=== PATIENT | male | born 1960 | race African-American/Black ===

== ENCOUNTER 2022-12-21 08:16 | Emergency (ER) | payer OTHER ==
[~2022-12-21] VITALS: Ht 165.1 cm; Wt 77.1 kg
[2022-12-21 08:47] VITALS: TEMP 98; O2SAT 100
[2022-12-21] MEDS ORDERED: KETOROLAC 30MG/ML VIAL IM STA (10:55)
[2022-12-21] MEDS ORDERED: ACETAMINOPHEN WITH CODEINE 300/30MG TABLET PO STA (10:55)
[2022-12-21 11:40] VITALS: BP 137/92; PULSE 102; RESP 20
[2022-12-21] MEDS ORDERED: HYDROCODONE/ACETAMINOPHEN 5/325MG TABLET PO STA (11:40)
[2022-12-21] MEDS ORDERED: HYDR-4001 MT (12:41)
[2022-12-21] MEDS ORDERED: NAPR-681 PO (12:41)
== END 2022-12-21 16:36 | disposition home or self-care (01) ==
LOC: ER 08:16
DX: S86.012A Strain of left Achilles tendon, initial encounter (principal); X58.XXXA Exposure to other specified factors, initial encounter; Y93.89 Activity, other specified; Y92.89 Other specified places as the place of occurrence of the external cause; Y99.8 Other external cause status
CPT/HCPCS: 99283; 73610; J1885

== ENCOUNTER 2024-06-24 19:30 | Inpatient (IN) | payer OTHER ==
[2024-06-24] VITALS (8 sets, daily range): BP systolic 143–155; BP diastolic 84–95; PULSE 100–111; RESP 15–33; TEMP 36.7–36.9; O2SAT 94–98
[~2024-06-24] VITALS: Ht 170.2 cm; Wt 79.8 kg
[~2024-06-24 19:30] MED LIST: HYDR-4001 MT; NAPR-681 PO
[2024-06-24] MEDS: LABETALOL 5MG/ML 4ML INJ IV ONE (20:07)
[2024-06-24] MEDS: LEVETIRACETAM 1000MG PREMIX 100 ML IV NR (20:14)
[2024-06-24 20:17] LABS: BASOPHILS % 1.3 % (0.0-2.0); EOSINOPHILS % 1.1 % (0.0-5.0); HEMATOCRIT. 41.8 % (42.0-52.0); LYMPHOCYTES % 34.7 % (20.0-50.0); MEAN CORPUSCULAR HEMOGLOBIN 31.5 pg (28.0-32.0); MEAN CORPUSCULAR HGB CONC 33.6 g/dL (31.0-37.0); MEAN CORPUSCULAR VOLUME 93.9 fL (80.0-94.0); MEAN PLATELET VOLUME 7.8 fl (7.4-10.4); MONOCYTES % 14.6 % (2.0-8.0); NEUTROPHILS % 48.3 % (40.0-76.0); PLATELET 229 x1000/uL (130-400); RED BLOOD CELL COUNT 4.45 mill/uL (4.7-6.1); WHITE BLOOD COUNT 5.7 x1000/uL (4.5-11.0)
[2024-06-24 20:24] LABS: PROTHROMBIN TIME 10.7 sec (9.6-11.0)
[2024-06-24 20:25] LABS: CARBON DIOXIDE 30 mEq/L (21-32); CHLORIDE 101 mEq/L (98-107); POTASSIUM 3.6 mEq/L (3.5-5.1); SODIUM 138 mEq/L (136-145)
[2024-06-24 20:27] LABS: CALCIUM 9.8 mg/dL (8.7-10.4)
[2024-06-24 20:31] LABS: GLUCOSE 179 mg/dL (70-105)
[2024-06-24 20:32] LABS: ETHANOL BLOOD < 10 mg/dL (<10); UREA NITROGEN BLOOD 13 mg/dL (9-23)
[2024-06-24] MEDS: DEXAMETHASONE 10 MG/ML VIAL IV NR (20:42)
[2024-06-24] MEDS: NICARDIPINE 40MG/200ML PREMIX 200 ML IV PRN (20:44)
[2024-06-24] MEDS: DEXT 5%/LACTATED RINGERS 1,000 ML IV SCH (20:45)
[2024-06-24] MEDS ORDERED: NICARDIPINE 100 MG in SODIUM CHLORIDE 0.9% 60 ML IV PRN (20:45)
[2024-06-24] MEDS ORDERED: LEVETIRACETAM 500MG PREMIX 100 ML IV SCH (21:00)
[2024-06-24 21:23] LABS: CLARITY URINE CLEAR (CLEAR); COLOR URINE YELLOW (YELLOW); GLUCOSE URINE NEGATIVE (NEGATIVE); KETONES URINE 1+ (NEGATIVE); LEUKOCYTE ESTERASE URINE NEGATIVE (NEGATIVE); NITRITE URINE NEGATIVE (NEGATIVE); OCCULT BLOOD URINE TRACE (NEGATIVE); PROTEIN URINE 1+ (NEGATIVE); SPECIFIC GRAVITY URINE 1.045 (1.005-1.030)
[2024-06-24 21:36] LABS: BACTERIA URINE NONE SEEN; SQUAMOUS EPITHELIAL CELL URINE RARE /lpf (RARE/1+); WBC URINE NONE SEEN /hpf (0-2)
[2024-06-24 21:39] LABS: *AMPHETAMINES SCREEN URINE NEGATIVE (NEGATIVE); *BARBITURATES SCREEN URINE NEGATIVE (NEGATIVE); *BENZODIAZEPINES SCREEN URINE NEGATIVE (NEGATIVE); *COCAINE SCREEN URINE NEGATIVE (NEGATIVE)
[2024-06-24 21:40] LABS: CANNABINOID URINE SCREEN NEGATIVE (NEGATIVE); ECSTASY MDMA SCREEN URINE NEGATIVE (NEGATIVE); METHADONE URINE SCREEN NEGATIVE (NEGATIVE); OPIATES URINE SCREEN NEGATIVE (NEGATIVE); PHENCYCLIDINE URINE SCREEN NEGATIVE (NEGATIVE)
[2024-06-24] MEDS ORDERED: MAGNESIUM/ALUMINUM HYDROXIDE/SIMETHICONE 30ML UDC PO PRN (21:45)
[2024-06-24] MEDS ORDERED: ONDANSETRON HCL 4MG/2ML INJ IV PRN (21:45)
[2024-06-24] MEDS ORDERED: CLONIDINE 0.1MG TABLET PO PRN (21:45)
[2024-06-24] MEDS ORDERED: DOCUSATE SODIUM 100MG CAPSULE PO PRN (21:45)
[2024-06-24] MEDS ORDERED: GUAIFENESIN 200MG/10ML SUGAR FREE UDC PO PRN (21:45)
[2024-06-24] MEDS ORDERED: ACETAMINOPHEN 325MG TABLET PO PRN (21:45)
[2024-06-24] MEDS ORDERED: IPRATROPIUM/ALBUTEROL 0.5-3(2.5)MG/3ML NEB HHN PRN (21:45)
[2024-06-24] MEDS ORDERED: DEXTROSE 50% WATER 50ML SYRINGE IV PRN (21:45)
[2024-06-24] MEDS: PANTOPRAZOLE SODIUM 40 MG/VIAL IV SCH (22:49)
[2024-06-24 23:38] LABS: CREATINE KINASE MB FRACTION 2.3 ng/mL (0.5-3.6)
[2024-06-24 23:39] LABS: TROPONIN I HIGH SENSITIVITY 17 ng/L (3.0-53)
[2024-06-24 23:40] LABS: CREATINE KINASE 87 IU/L (46-171)
[2024-06-25] VITALS (69 sets, daily range): BP systolic 101–157; BP diastolic 36–129; PULSE 96–142; RESP 12–31; TEMP 36.4–37; O2SAT 72–99
[2024-06-25] MEDS: DEXAMETHASONE 4MG/ML 1ML VIAL IV SCH (01:57)
[2024-06-25] MEDS: NICARDIPINE 100 MG in SODIUM CHLORIDE 0.9% 60 ML IV PRN (02:00)
[2024-06-25] MEDS: BLOOD SUGAR DIAGNOSTIC STRIP TEST SCH (05:34)
[2024-06-25 05:50] LABS: BASOPHILS % 0.8 % (0.0-2.0); EOSINOPHILS % 0.1 % (0.0-5.0); HEMATOCRIT. 47.6 % (42.0-52.0); HEMOGLOBIN. 15.7 g/dL (14.0-18.0); LYMPHOCYTES % 14.4 % (20.0-50.0); MEAN CORPUSCULAR HEMOGLOBIN 31.5 pg (28.0-32.0); MEAN CORPUSCULAR VOLUME 95.5 fL (80.0-94.0); MEAN PLATELET VOLUME 8.3 fl (7.4-10.4); MONOCYTES % 1.3 % (2.0-8.0); NEUTROPHILS % 83.4 % (40.0-76.0); PLATELET 250 x1000/uL (130-400); RED BLOOD CELL COUNT 4.98 mill/uL (4.7-6.1); WHITE BLOOD COUNT 5.9 x1000/uL (4.5-11.0)
[2024-06-25 05:58] LABS: CHLORIDE 102 mEq/L (98-107); POTASSIUM 4.8 mEq/L (3.5-5.1); SODIUM 134 mEq/L (136-145)
[2024-06-25 05:59] LABS: CARBON DIOXIDE 24 mEq/L (21-32)
[2024-06-25 06:04] LABS: CREATINE KINASE MB FRACTION 2.5 ng/mL (0.5-3.6); CREATININE 0.9 mg/dL (0.6-1.3); GLUCOSE 274 mg/dL (70-105); TRIGLYCERIDE 88 mg/dL (0-150); UREA NITROGEN BLOOD 13 mg/dL (9-23)
[2024-06-25 06:05] LABS: LDL CHOLESTEROL 37 mg/dL (5-100)
[2024-06-25 06:06] LABS: CHOLESTEROL 129 mg/dL (<200); HDL CHOLESTEROL 75 mg/dL (>55)
[2024-06-25 06:09] LABS: T4 FREE 1.36 ng/dL (0.89-1.76)
[2024-06-25] MEDS: INSULIN LISPRO 100 UNITS/ML SUBCUT SCH (06:10)
[2024-06-25] MEDS: LEVETIRACETAM 500MG PREMIX 100 ML IV SCH (08:33)
[2024-06-25] MEDS: AMLODIPINE 5MG TABLET PO SCH (13:40)
[2024-06-25] MEDS: AMLODIPINE 5MG TABLET PO NR (14:23)
[2024-06-25] MEDS: ACETAMINOPHEN 325MG TABLET PO PRN (16:51)
[2024-06-25] MEDS: MELATONIN 3MG TABLET PO SCH (21:30)
[2024-06-25] MEDS: ATORVASTATIN CALCIUM 20MG TABLET PO SCH (21:30)
[2024-06-26] VITALS: BP 125/80; PULSE 83; RESP 20; TEMP 36.2; O2SAT 96
[2024-06-26 04:00] VITALS: BP 127/82; PULSE 83; RESP 20; TEMP 36.3; O2SAT 96
[2024-06-26 04:01] VITALS: BP 127/82; PULSE 83; RESP 20; TEMP 36.3; O2SAT 96
[2024-06-26 08:00] VITALS: BP 123/79; PULSE 93; RESP 17; TEMP 36.8; O2SAT 97
[2024-06-26 12:00] VITALS: BP 120/79; PULSE 90; RESP 18; TEMP 36.9; O2SAT 96
[2024-06-26 16:00] VITALS: BP 129/79; PULSE 100; RESP 15; TEMP 37; O2SAT 95
[2024-06-26] MEDS ORDERED: LEVETIRACETAM 500MG TABLET PO SCH (21:00)
== END 2024-06-26 20:00 | disposition short-term general hospital (02) | DRG 65 ==
LOC: ER 19:30 → EDBEDREQTM 20:37 → EDBEDREQ 20:37 → EDBEDREQSVC 20:37 → ENRESERV 21:23 → MICUSO 21:59 → 7WST 06-25 17:57
PROVIDERS: ADMIT Hospitalist; ATTEND Hospitalist
DX: I61.5 Nontraumatic intracerebral hemorrhage, intraventricular (principal); G81.94 Hemiplegia, unspecified affecting left nondominant side; I16.1 Hypertensive emergency; E11.65 Type 2 diabetes mellitus with hyperglycemia; F17.290 Nicotine dependence, other tobacco product, uncomplicated; E78.5 Hyperlipidemia, unspecified; F43.9 Reaction to severe stress, unspecified; Z79.899 Other long term (current) drug therapy
CPT/HCPCS: 36415; 70496; 70498; 71045; 80048; 80061; 80305; 80320; 81003; 82550; 82553; 82962; 83036; 84439; 84443; 84484; 85025; 93005; 97110; 97162; 97166; 97535; 99285; A4606; J1100; J1815; J1953; J2470; J3490; J7050; G0480